=== PATIENT | female | born 1970 | race Caucasian/White ===

== ENCOUNTER 2016-11-10 21:41 | Emergency (ER) | payer OTHER ==
[2016-11-11 00:32] VITALS: BP 111/80
== END 2016-11-11 00:32 | disposition home or self-care (01) ==
LOC: ED 21:41
DX: S16.1XXA Strain of muscle, fascia and tendon at neck level, initial encounter (principal); M25.511 Pain in right shoulder; R10.9 Unspecified abdominal pain; M54.5 Low back pain; V49.9XXA Car occupant (driver) (passenger) injured in unspecified traffic accident, initial encounter; Y93.89 Activity, other specified; Y99.8 Other external cause status; Y92.89 Other specified places as the place of occurrence of the external cause
CPT/HCPCS: 72072; J1885

== ENCOUNTER 2017-02-15 21:20 | Emergency (ER) | payer OTHER ==
[2017-02-15 23:29] VITALS: BP 120/78
== END 2017-02-15 23:29 | disposition home or self-care (01) ==
LOC: ED 21:20
DX: M62.838 Other muscle spasm (principal); E11.9 Type 2 diabetes mellitus without complications; E78.5 Hyperlipidemia, unspecified
CPT/HCPCS: J1885